=== PATIENT | female | born 1980 | race Asian ===

== ENCOUNTER 2018-09-07 04:30 | Inpatient (IN) | payer OTHER ==
[2018-09-07] MEDS ORDERED: METHYLERGONOVINE 0.2 MG INJ IM ×2 (05:30→10:00)
[2018-09-07] MEDS ORDERED: CEFAZOLIN 2 GM/50 ML (PMX) 50 ML IVPB (05:30)
[2018-09-07] MEDS ORDERED: OXYTOCIN 30 UNITS/LR 500 ML IV ×4 (05:30→10:00)
[2018-09-07] MEDS ORDERED: CARBOPROST 250 MCG INJ IM ×2 (05:30→10:00)
[2018-09-07] MEDS: LACTATED RINGER'S 1,000 ML IV (05:35)
[2018-09-07 05:46] LABS: ADD MAN DIFF? NO
[2018-09-07] MEDS: AZITHROMYCIN 500MG/NS (PMX) 250 ML IV (05:55)
[2018-09-07 05:57] LABS: BASOPHILS % 0.3 % (0.0-2.0); EOSINOPHILS # 0.1 10^3/ul (0.0-0.5); EOSINOPHILS % 0.6 % (0.0-7.0); HEMATOCRIT 36.6 % (37.0-47.0); HEMOGLOBIN 12.1 g/dl (12.0-16.0); LYMPHOCYTES # 2.2 10^3/ul (0.8-2.9); LYMPHOCYTES % 22.3 % (15.0-51.0); MEAN CORPUSCULAR HEMOGLOBIN 28.6 pg (29.0-33.0); MEAN CORPUSCULAR HGB CONC 33.1 g/dl (32.0-37.0); MEAN CORPUSCULAR VOLUME 86.5 fl (82.0-101.0); MONOCYTE # 0.7 10^3/ul (0.3-0.9); MONOCYTES % 6.9 % (0.0-11.0); NEUTROPHIL # 6.7 10^3/ul (1.6-7.5); NEUTROPHILS % 69.5 % (39.0-77.0); PLATELET COUNT 271 10^3/UL (140-415); RED BLOOD COUNT 4.23 10^6/ul (4.20-5.40); RED CELL DISTRIBUTION WIDTH 12.7 % (11.5-14.5)
[2018-09-07 05:57] LABS: WHITE BLOOD COUNT 9.7 10^3/ul (4.8-10.8)
[2018-09-07 06:08] LABS: INR 0.87; PROTIME 11.9 Sec (11.9-14.9); PT RATIO 0.9
[2018-09-07 06:09] LABS: PARTIAL THROMBOPLASTIN TIME 25.5 Sec (23.0-35.0)
[2018-09-07] MEDS ORDERED: LACTATED RINGER'S 1,000 ML IV (07:12)
[2018-09-07] MEDS: CITRIC ACID/NA CITRATE 30 ML CUP PO (07:15)
[2018-09-07] MEDS ORDERED: METOCLOPRAMIDE 10 MG INJ (07:16)
[2018-09-07] MEDS ORDERED: morphine SULFATE/PF (10 MG/10 ML) INJ (07:16)
[2018-09-07] MEDS ORDERED: FAMOTIDINE 20 MG INJ (07:17)
[2018-09-07] MEDS ORDERED: CITRIC ACID/NA CITRATE 30 ML CUP (07:17)
[2018-09-07] MEDS: METOCLOPRAMIDE 10 MG INJ IV (07:30)
[2018-09-07] MEDS: FAMOTIDINE 20 MG INJ IV (07:30)
[2018-09-07] MEDS ORDERED: ONDANSETRON 4 MG INJ (07:53)
[2018-09-07] MEDS ORDERED: MIDAZOLAM 1 MG/ML 2 ML INJ (07:56)
[2018-09-07] MEDS ORDERED: FENTAnyl 50 MCG/ML VIAL (08:07)
[2018-09-07] MEDS ORDERED: PROCHLORPERAZINE 10 MG INJ IV (08:30)
[2018-09-07] MEDS ORDERED: DIPHENHYDRAMINE 50 MG INJ IV (08:30)
[2018-09-07] MEDS ORDERED: MEPERIDINE 25 MG INJ IV (08:30)
[2018-09-07] MEDS ORDERED: HYDROmorphONE 1 MG/5 ML IV SYRINGE IV ×2 (08:30)
[2018-09-07] MEDS ORDERED: KETOROLAC 30 MG INJ IV (08:30)
[2018-09-07] MEDS ORDERED: FENTAnyl 50 MCG/ML VIAL IV ×3 (08:30)
[2018-09-07] MEDS ORDERED: LANOLIN HPA 1 PKT TOP (10:00)
[2018-09-07] MEDS ORDERED: MISOPROSTOL 200 MCG TAB PR (10:00)
[2018-09-07] MEDS ORDERED: METHYLERGONOVINE 0.2 MG TAB PO (10:00)
[2018-09-07] MEDS: OXYTOCIN 30 UNITS/LR 500 ML IV ×3 (10:04→15:02)
[2018-09-07] MEDS ORDERED: ONDANSETRON 4 MG INJ IV (10:30)
[2018-09-07] MEDS ORDERED: ZOLPIDEM 5 MG TAB PO (10:30)
[2018-09-07] MEDS ORDERED: HYDROmorphONE 0.5 MG/0.5 ML SYG IV ×2 (10:30)
[2018-09-07] MEDS ORDERED: NALOXONE (0.4 MG/ML) INJ IV (10:30)
[2018-09-07] MEDS: MISOPROSTOL 200 MCG TAB PR (10:43)
[2018-09-07] MEDS: HYDROmorphONE 1 MG/5 ML IV SYRINGE IV (11:06)
[2018-09-07] MEDS: ONDANSETRON 4 MG INJ IV (11:24)
[2018-09-07] MEDS: KETOROLAC 30 MG INJ IV (13:56)
[2018-09-07] MEDS: DIPHENHYDRAMINE 50 MG INJ IV (15:05)
[2018-09-07 17:09] LABS: RAPID PLASMA REAGIN NONREACTIVE (NR)
[2018-09-07] MEDS: SENNA/DOCUSATE NA (8.6MG/50MG) TAB PO (21:16)
[2018-09-08] MEDS: KETOROLAC 30 MG INJ IV ×2 (00:14→07:43)
[2018-09-08] MEDS: DIPHENHYDRAMINE 50 MG INJ IV (00:15)
[2018-09-08] MEDS: LACTATED RINGER'S 1,000 ML IV (01:49)
[2018-09-08] MEDS ORDERED: IBUPROFEN 800 MG TAB PO (07:30)
[2018-09-08 08:40] LABS: ADD MAN DIFF? NO
[2018-09-08 08:49] LABS: BASOPHILS % 0.2 % (0.0-2.0); EOSINOPHILS % 0.2 % (0.0-7.0); HEMOGLOBIN 10.2 g/dl (12.0-16.0); LYMPHOCYTES # 1.4 10^3/ul (0.8-2.9); LYMPHOCYTES % 13.7 % (15.0-51.0); MEAN CORPUSCULAR HEMOGLOBIN 27.9 pg (29.0-33.0); MEAN CORPUSCULAR HGB CONC 31.9 g/dl (32.0-37.0); MEAN CORPUSCULAR VOLUME 87.7 fl (82.0-101.0); MEAN PLATELET VOLUME 9.6 fl (7.4-10.4); MONOCYTE # 0.6 10^3/ul (0.3-0.9); NEUTROPHILS % 79.5 % (39.0-77.0); PLATELET COUNT 242 10^3/UL (140-415); RED BLOOD COUNT 3.65 10^6/ul (4.20-5.40); RED CELL DISTRIBUTION WIDTH 12.7 % (11.5-14.5)
[2018-09-08 09:16] LABS: ANION GAP 6 (5-13); BLOOD UREA NITROGEN 11 mg/dl (7-20); CALCIUM 8.5 mg/dl (8.4-10.2); CARBON DIOXIDE 29 mmol/L (21-31); CHLORIDE 100 mmol/L (97-110); CREATININE 0.63 mg/dl (0.44-1.00); Estimated GFR > 60 mL/min (>60); GLUCOSE 76 mg/dl (70-220); SODIUM 135 mmol/L (135-144)
[2018-09-08 09:17] LABS: POTASSIUM 3.8 mmol/L (3.5-5.1)
[2018-09-08] MEDS: SENNA/DOCUSATE NA (8.6MG/50MG) TAB PO ×2 (10:03→21:54)
[2018-09-08] MEDS: HYDROCODONE/APAP (5/325) TAB PO ×3 (11:33→21:56)
[2018-09-08] MEDS: IBUPROFEN 800 MG TAB PO (17:13)
[2018-09-09] MEDS: HYDROCODONE/APAP (5/325) TAB PO ×3 (03:30→17:18)
[2018-09-09] MEDS: IBUPROFEN 800 MG TAB PO ×2 (03:30→21:18)
[2018-09-09] MEDS: SENNA/DOCUSATE NA (8.6MG/50MG) TAB PO ×2 (09:00→21:18)
[2018-09-10] MEDS: HYDROCODONE/APAP (5/325) TAB PO ×2 (02:05→07:36)
[2018-09-10 07:49] LABS: ADD MAN DIFF? NO
[2018-09-10 07:50] LABS: BASOPHILS % 0.3 % (0.0-2.0); EOSINOPHILS # 0.2 10^3/ul (0.0-0.5); EOSINOPHILS % 2.1 % (0.0-7.0); HEMATOCRIT 30.4 % (37.0-47.0); HEMOGLOBIN 9.8 g/dl (12.0-16.0); LYMPHOCYTES # 2.4 10^3/ul (0.8-2.9); LYMPHOCYTES % 32.9 % (15.0-51.0); MEAN CORPUSCULAR HEMOGLOBIN 28.4 pg (29.0-33.0); MEAN CORPUSCULAR HGB CONC 32.2 g/dl (32.0-37.0); MEAN CORPUSCULAR VOLUME 88.1 fl (82.0-101.0); MEAN PLATELET VOLUME 9.7 fl (7.4-10.4); MONOCYTE # 0.4 10^3/ul (0.3-0.9); MONOCYTES % 5.6 % (0.0-11.0); NEUTROPHIL # 4.3 10^3/ul (1.6-7.5); NEUTROPHILS % 58.7 % (39.0-77.0); PLATELET COUNT 253 10^3/UL (140-415); RED BLOOD COUNT 3.45 10^6/ul (4.20-5.40); RED CELL DISTRIBUTION WIDTH 12.9 % (11.5-14.5)
[2018-09-10 07:50] LABS: WHITE BLOOD COUNT 7.3 10^3/ul (4.8-10.8)
[2018-09-10] MEDS: SENNA/DOCUSATE NA (8.6MG/50MG) TAB PO (09:00)
[2018-09-10] MEDS: DIPHTH/TET/ACEL PERTUSS (ADULT) 0.5 ML VIAL IM* (09:08)
[2018-09-10] MEDS: MEASLES,MUMPS,RUBELLA VACCINE INJ SC* (09:08)
== END 2018-09-10 14:15 | disposition home or self-care (01) | DRG 785 ==
LOC: OBT 04:30 → L-D 04:30 → OBT 05:10 → L-D 05:10 → PP1 11:53
PROVIDERS: Obstetrics & Gynecology
PROC: 10D00Z1 Extraction of Products of Conception, Low, Open Approach (ICD-10-PCS; principal; 2018-09-07 08:15)
PROC: 0UL70ZZ Occlusion of Bilateral Fallopian Tubes, Open Approach (ICD-10-PCS; 2018-09-07 08:15)
DX: O65.5 Obstructed labor due to abnormality of maternal pelvic organs (principal); O34.211 Maternal care for low transverse scar from previous cesarean delivery; K66.0 Peritoneal adhesions (postprocedural) (postinfection); Z3A.38 38 weeks gestation of pregnancy; Z37.0 Single live birth; Z30.2 Encounter for sterilization
CPT/HCPCS: 80048; 85025; 85610; 85730; 86592; 86850; 86900; 86901; 88302; 99464